=== PATIENT | male | born 1945 | race Caucasian/White ===

== ENCOUNTER 2019-02-28 13:02 | Inpatient (IN) | payer MEDICARE ==
[~2019-02-28] VITALS: Ht 177.8 cm; Wt 84.4 kg
[2019-02-28] MEDS ORDERED: FOLI0.8T PO (13:07)
[2019-02-28] MEDS ORDERED: LEVE500T9 PO (13:07)
--- NOTE | 2019-02-28 13:10 | NUR ---
danilo MAHAN frm assisted living for generalized weakness x 2 days. PATIENT A/OX1, BREATHING EVEN AND UNLABORED, NO SOB NOTED. CHANGED INTO GOWN, ATTACHED TO THE HOTEL DINING ROOM CASHIER.
[2019-02-28 13:21] LABS: BASOPHILS # (AUTO) 0.1 /CMM (0.0-0.2); BASOPHILS % (AUTO) 1.5 % (0.0-2.0); EOSINOPHILS % (AUTO) 4.3 % (0.0-6.0); HEMATOCRIT 45 % (39-51); LYMPHOCYTES # (AUTO) 1.9 /CMM (0.8-4.8); LYMPHOCYTES % (AUTO) 25.8 % (20.0-44.0); MEAN CORPUSCULAR HGB CONC 33 g/dl (31.0-36.0); MEAN CORPUSCULAR VOLUME 91 fL (80-96); MONOCYTES # (AUTO) 0.6 /CMM (0.1-1.30); MONOCYTES % (AUTO) 7.6 % (2.0-12.0); NEUTROPHILS # (AUTO) 4.5 /CMM (1.8-8.9); NEUTROPHILS % (AUTO) 60.8 % (43.0-81.0); PLATELET COUNT (AUTO) 156 /CMM (150-450); RED BLOOD CELL COUNT(AUTO) 4.95 MIL/uL (4.5-6.0); WHITE BLOOD COUNT (AUTO) 7.4 K/uL (4.3-11.0)
[2019-02-28 13:30] LABS: POTASSIUM 3.8 mmol/L (3.5-5.1); SODIUM SERUM 142 mmol/L (136-145)
[2019-02-28 13:31] LABS: CALCIUM, SERUM 9.2 mg/dL (8.5-10.1); CARBON DIOXIDE 31 mmol/L (21-32); CHLORIDE 105 mmol/L (98-107); CREATININE 1.1 mg/dL (0.6-1.3); GLUCOSE 127 mg/dL (74-106); UREA NITROGEN, BLOOD 20 mg/dL (7-18)
[2019-02-28 13:34] LABS: APPEARANCE,URINE Clear (CLEAR); BILIRUBIN,URINE SMALL (NEGATIVE); BLOOD, URINE Trace-intact Ery/uL (NEGATIVE); COLOR,URINE Amber (YELLOW); KETONES,URINE Negative (NEGATIVE); LEUKOCYTE ESTERASE ,URINE Negative (NEGATIVE); NITRITE, URINE Negative (NEGATIVE); PH,URINE 5.5 (5.0-8.0); PROTEIN,URINE 30 mg/dl (NEGATIVE); UGLUCOSE Negative (NEGATIVE); UROBILINOGEN,URINE 0.2 EU/dL (0.2)
--- NOTE | 2019-02-28 13:35 | NUR ---
dr york paged. awaiting call back.
[2019-02-28 13:38] LABS: BACTERIA,URINE Few /HPF (None Seen); SQUAMOUS EPITHELIAL CELL,UR Rare /HPF (None Seen); WBC,URINE 0-2 /HPF (0-3)
[2019-02-28 13:41] LABS: ALKALINE PHOSPHATASE 70 U/L (46-116); ASPARTATE AMINOTRANSFERASE 46 U/L (15-37); BILIRUBIN,DIRECT 0.2 mg/dL (0.0-0.2); BILIRUBIN,TOTAL 0.6 mg/dL (0.2-1.0)
[2019-02-28 13:42] LABS: ALANINE AMINOTRANSFERASE 78 U/L (12-78); ALBUMIN 3.5 g/dL (3.4-5.0); TOTAL PROTEIN, SERUM 7.7 g/dL (6.4-8.2)
--- NOTE | 2019-02-28 14:04 | NUR ---
PAGED DR. ANDERSEN. WAITING FOR CALL BACK.
--- NOTE | 2019-02-28 15:37 | NUR ---
report given to TRACI CURRAN.
--- NOTE | 2019-02-28 15:38 | NUR ---
BED ASSIGN 326-7
--- NOTE | 2019-02-28 16:33 | NUR ---
TRANSFERRED TO ROOM 326-1 VIA ACLS PROTOCOL. NO DSITRESS NOTED. ENDORSED TO TRACI CURRAN.
--- NOTE | 2019-02-28 16:35 | NUR ---
RN NOTES Received patient from ER, no sob noted, patient shows no s/s of pain at this time. Patient on room air and is a/o x1. R AC 18 remains intact. Bed at the lowest setting, call light within reach, side rails up x2.
--- NOTE | 2019-02-28 18:23 | NUR ---
RN CLOSING NOTES Patient remains on room air, no sob noted, patient shows no s/s of pain at this time. Patient remains a/o x1 and with R ac 18 S/L. Bed at the lowest setting, florian llight within reach, side rails up x2. Photos were taken and is in the chart. Will give report to NOC rn for [facility] bedside.
--- NOTE | 2019-02-28 19:20 | NUR ---
CREATIVE LEAD NOTES RECEIVED ON BED,CONFUSED,TOOK OFF HIS TELE MONITOR BOX.IVF NS AT 75ML/HR RATE IN PROGRESS ON RIGHT AC.NOTED REDNESS EXCORIATION ON RIGHT LOWER ARM.FALL PRECAUTION OBSERVED,BED ALARM TRIGGERED,CALL LIGHT I REACH,NEEDS ANTICIPATED.
[2019-02-28] MEDS: IV NS 0.9% 1,000 ML BAG IV PRN (19:28)
[2019-02-28] MEDS ORDERED: ONDANSETRON HCL/PF 4 MG/2 ML VIAL IV PRN (19:30)
[2019-02-28] MEDS ORDERED: ACETAMINOPHEN 325 MG TABLET PO PRN (19:30)
[2019-02-28 20:00] VITALS: BP 118/69
[2019-02-28] MEDS: LEVETIRACETAM (250 MG) 250 MG TABLET PO SCH (20:57)
--- NOTE | 2019-02-28 21:00 | NUR ---
WORM FARMER NOTES DUE PO MEDS GIVEN SCHEDULED,TAKEN WELL,NEGATIVE FOR ASPIRATION.SNACKS PROVIDED.
[2019-03-01] VITALS (7 sets, daily range): BP systolic 113–141; BP diastolic 66–79
--- NOTE | 2019-03-01 02:00 | NUR ---
AGRICULTURE SCIENTIST NOTES SALINE LOCK ACCIDENTALLY PULLED OUT.NEW SALINE LOCK PLACE ON LEFT THUMB #22,SAME IVF INFUSING.
--- NOTE | 2019-03-01 06:21 | NUR ---
PAINTING SUPERVISOR NOTES CALM AND QUIET ON BED.SR-61 ON TELE MONITOR.REFUSED TO WEAR HOSPITAL GOWN.NO SEIZURE ACTIVITY NOTED.BREAKFAST WILL BE HOLD TILL SEEN BY SERVICE DESK TECHNICIAN.IN NO ACUTE DISTRESS.WILL ENDORSE TO DAY NURSE FOR RIKA.
--- NOTE | 2019-03-01 07:26 | NUR ---
RN OPENING NOTES Patient received on room air, no sob noted,remains a/o x1. L thumb 22 NS @ 75 ml per hour. Bed at the lowest setting, call light within reach, side rails up x2.
[2019-03-01] MEDS: LEVETIRACETAM (250 MG) 250 MG TABLET PO SCH ×2 (08:17→20:53)
[2019-03-01] MEDS: FOLIC ACID 1 MG TABLET PO SCH (08:17)
[2019-03-01] MEDS: PANTOPRAZOLE 40 MG TABLET.DR PO SCH (08:17)
[2019-03-01] MEDS: ENOXAPARIN SODIUM 40 MG/0.4 ML DISP.SYRIN SQ SCH (08:18)
--- NOTE | 2019-03-01 19:03 | NUR ---
RN CLOSING NOTES Patient remains on room air, no sob noted, a/o x1. Cardiac diet, NS @ 75 ml per hour. Patient removed IV line at this time. Continue IVF cont hospitalization. Bed at the lowest setting, call light within reach, side rails up x2. Will give report to NOC RN for [facility] bedside.
--- NOTE | 2019-03-01 19:10 | NUR ---
TELE/RN OPENING NOTES: RECEIVED PATIENT ON BED,CONFUSED, A/OX1. TOOK OFF HIS TELE MONITOR BOX.IVF NS AT 75ML/HR RATE IN PROGRESS ON LEFT THUMB. ON TELE MONITORING WITH READING OF SR WITH HR OF 60'S AND OCCASIONAL PVCS. NOTED REDNESS EXCORIATION ON RIGHT LOWER ARM. FALL PRECAUTION OBSERVED, SAFETY PRECAUTIONS ARE IN PLACE. BED ALARM ON, BE DIN LOW, LOCKED POSITION WITH SR UP X2. CALL LIGHT IN REACH, WILL CONTINUE MONITORING PT ACCORDINGLY. Addendum: 03/01/19 at 2345 by JOSEPH FLORES RN NO IV LINE PRESENT. WILL INSERT AN IV LINE
[2019-03-02] VITALS (8 sets, daily range): BP systolic 93–144; BP diastolic 54–79
--- NOTE | 2019-03-02 | NUR ---
MS/DISTILLERY WORKER NOTES: STARTED NEW IV LINE ACCESS ON THE LEFT HAND #22G CLEAN, INTACT, PATENT AND FLUSHING WELL.
[2019-03-02] MEDS: IV NS 0.9% 1,000 ML BAG IV PRN (00:11)
--- NOTE | 2019-03-02 00:18 | NUR ---
TELE/MS RN NOTES: IV 0.9 NS 1000 ML RUNNING AT 75MLS/HR. IV LINE INTACT AND PATENT.
--- NOTE | 2019-03-02 06:24 | NUR ---
TELE/RN CLOSING NOTES: Patient remains on room air, no sob noted, a/o x1. No significant changes in condition. On cardiac diet. IV access on the left hand #22g, patent and intact, NS running @ 75 ml per hour. Tele reading of SR with HR on the 70s. All medications given as ordered. Tolerated well. Safety measures kept in place. Bed at the lowest setting and locked, call light within reach, side rails up x2. All nursing needs met and provided. Will give report to day shift RN for [facility]IKA bedside.
[2019-03-02 07:12] LABS: BASOPHILS % (AUTO) 0.7 % (0.0-2.0); EOSINOPHILS % (AUTO) 5.2 % (0.0-6.0); HEMATOCRIT 41 % (39-51); HEMOGLOBIN 13.7 g/dL (13.5-17.5); LYMPHOCYTES # (AUTO) 1.5 /CMM (0.8-4.8); LYMPHOCYTES % (AUTO) 31.5 % (20.0-44.0); MEAN CORPUSCULAR HGB CONC 34 g/dl (31.0-36.0); MEAN CORPUSCULAR VOLUME 90 fL (80-96); MONOCYTES # (AUTO) 0.6 /CMM (0.1-1.30); MONOCYTES % (AUTO) 11.9 % (2.0-12.0); NEUTROPHILS # (AUTO) 2.5 /CMM (1.8-8.9); NEUTROPHILS % (AUTO) 50.7 % (43.0-81.0); PLATELET COUNT (AUTO) 144 /CMM (150-450); RED BLOOD CELL COUNT(AUTO) 4.54 MIL/uL (4.5-6.0); WHITE BLOOD COUNT (AUTO) 4.9 K/uL (4.3-11.0)
[2019-03-02 07:25] LABS: ALBUMIN 2.7 g/dL (3.4-5.0); BILIRUBIN,TOTAL 0.6 mg/dL (0.2-1.0); CALCIUM, SERUM 8.1 mg/dL (8.5-10.1); CREATININE 0.8 mg/dL (0.6-1.3); PHOSPHORUS 2.1 mg/dL (2.5-4.9); POTASSIUM 3.7 mmol/L (3.5-5.1); TOTAL PROTEIN, SERUM 6.2 g/dL (6.4-8.2)
--- NOTE | 2019-03-02 08:00 | NUR ---
RN NOTES RECEIVED PATIENT IN THE BED RESTING A/A/O X1 UNABLE TO EXPRESS SELF , BUT UNDERSTAND CONCEPTS. NO ACUTE RESPIRATORY DISTRESS, V/S STABLE, ADMINISTERED SCHEDULED MEDICATION WITH CRUSHED MIXED WITH APPLE SAUCE. IV ACCESS ON LEFT HAD INTACT. PATIENT REFUSED PAIN. ASSIST PATIENT TURN AND REPOSTION IN THE BED Q2 HR. CALL LIGHT WITHIN TO REACH. PATIENT INCONTINENT OF URINE, USING DIAPER. SAFETY PRECAUTION MAINTAINED ALL THE TIME.
[2019-03-02] MEDS: FOLIC ACID 1 MG TABLET PO SCH (09:43)
[2019-03-02] MEDS: PANTOPRAZOLE 40 MG TABLET.DR PO SCH (09:43)
[2019-03-02] MEDS: LEVETIRACETAM (250 MG) 250 MG TABLET PO SCH ×2 (09:43→21:08)
[2019-03-02] MEDS: ENOXAPARIN SODIUM 40 MG/0.4 ML DISP.SYRIN SQ SCH (09:45)
[2019-03-02] MEDS ORDERED: POTASSIUM CHLORIDE 20 MEQ TAB.PRT.SR PO ONE (11:30)
[2019-03-02] MEDS ORDERED: NEUTRA PHOS 1 POWD.PACKET PO ONE (11:30)
--- NOTE | 2019-03-02 12:41 | NUR ---
MS RN NOTES BS-146 MG/DL ADMINISTERED 2 UNITS OF INSULIN, INFUSING ZOSYN 25 ML/HR ON LEFT FA INTACT, PATIENT REFUSED PAIN, , EATING LUNCH. F/C DRAINING WITH BLOODY OUTCOME. SEEN PATIENT BY VENEER GRADER Dr ZAVALA, AND HOSPITALIST SARA BOATENG. ASSIST PATIENT TURN AND REPOSTION Q 2 HR. CALL LIGHT WITHIN TO REACH. SAFETY PRECAUTION MAINTAINED ALL TH TIME. Addendum: 03/02/19 at 1250 by JIM AMAYA RN ABOVE NOTES IS NOT CORRECT ENQUIRE.
--- NOTE | 2019-03-02 13:04 | NUR ---
RN NOTES PER HOSPITALIST D/C TELE TO MED SURGE.
--- NOTE | 2019-03-02 13:40 | NUR ---
rn notes patient pickling drum operator for ct of abdomen at this time.
--- NOTE | 2019-03-02 13:50 | NUR ---
RN NOTES PATIENT BACK FROM ST, STABLE, ASSIST PATIENT TO THE BATHROOM WITH TWO PERSON DEVELOPER AUTOMATIC, PATIENT FALL RISK. SAFETY PRECAUTION MAINTAINED ALL THE TIME. PATIENT REFUSED PAIN. NEEDS ATTENDED AND ANTICIPATED. CONTINUED MONITORING.
--- NOTE | 2019-03-02 19:45 | NUR ---
MS RN OPENING NOTES Patient currently resting in bed a/o x1. Stable on room air breathing even and unlabored. No acute distress notes, no complaints of pain and discomfort. Patient on diaper and has bed side commode. IV located on right FA #20 patent and intact. Safety precautions in place with bed in lowest position, side rails up, breaks on, and call light within reach. Will continue to monitor.
--- NOTE | 2019-03-03 06:59 | NUR ---
MS RN CLOSING NOTES Patient is currently in bed resting a/o x1. Stable on RA breathing even and unlabored. No complaints of pain or discomfort, and no signs of acute distress. IV located on R FA #20 patent and intact. Safety precautions in place with bed in lowest position, breaks on, call light within reach, and side rails up x2. Will endorse to oncoming shift about oleksandr.
--- NOTE | 2019-03-03 07:29 | NUR ---
MS RN OPENING NOTES: PATIENT RECEIVED IN BED AWAKE LAYING COMFORTABLY IN NO APPARENT DISTRESS. BREATHING ON ROOM AIR WITH NO SOB PRESENT AT THE MOMENT. PATIENT A/O X2. PATIENT IS VERBALLY RESPONSIVE. DENIES PAIN OR ANY DISCOMFORT AT THIS TIME. IV ACCESS ON R FA GAUGE # 20. IT IS PATENT AND FLUSHING WELL. ALL SAFETY PRECAUTIONS IN PLACE; BED IN LOW POSITION AND LOCKED, RAILS UP X 2, CALL LIGHT WITHIN REACH. REMINDED THE PATIENT TO CALL FOR ASSISTANCE BEFORE GETTING OUT OUT OF BED. WILL CONTINUE TO MONITOR.
[2019-03-03 08:00] VITALS: BP 127/66
[2019-03-03] MEDS: ENOXAPARIN SODIUM 40 MG/0.4 ML DISP.SYRIN SQ SCH (08:21)
[2019-03-03] MEDS: LEVETIRACETAM (250 MG) 250 MG TABLET PO SCH ×2 (08:22→20:31)
[2019-03-03] MEDS: FOLIC ACID 1 MG TABLET PO SCH (08:22)
[2019-03-03] MEDS: PANTOPRAZOLE 40 MG TABLET.DR PO SCH (08:22)
[2019-03-03 08:50] VITALS: BP_SYST 110; BP_SYST 116; BP_SYST 118; BP_DIAS 59; BP_DIAS 61; BP_DIAS 67
[2019-03-03] MEDS: IV NS 0.9% 1,000 ML BAG IV PRN (08:52)
--- NOTE | 2019-03-03 15:33 | NUR ---
RN NOTES CALLED RADIOLOGY REGARDING PT CT OF CHEST W/O CONTRAST. INFORMED THAT PT IS MORE ALERT, CALMED AND COOPERATIVE TODAY. NURSE STAFF INDUSTRIAL SAID THAT THEY WILL COME AND TRY TO DO IT TODAY.
[2019-03-03 16:00] VITALS: BP 114/59
--- NOTE | 2019-03-03 18:05 | NUR ---
RN NOTES PT PULLED OUT HIS IV ACCESS ON RFA G#20, NO BLEEDING NOTED. NEW IV ACCESS INSERTED TO LFA G#22. WILL CONTINUE TO MONITOR.
--- NOTE | 2019-03-03 18:41 | NUR ---
MS RN CLOSING NOTES: PATIENT IN BED AWAKE AND RESTING AT SEMI-JIMENEZ'S POSITION. A/O X 1-2. FORGETFUL AND RESPONDS BY SAYING YES OR NO. ON ROOM AIR, TOLERATING WELL WITH NO SIGNS OF DISTRESS NOTED THROUGHOUT THE DAY. IV ACCESS ON LFA #22G INTACT, PATENT AND FLUSHING WELL. ALL NEEDS AND CARE ATTENDED WELL. SEIZURE AND SAFETY PRECAUTIONS MAINTAINED: BED IN LOWEST LOCKED POSITION WITH SIDE RAILS UP X 2, RAILS ARE PADDED. CALL LIGHT WITHIN REACH. INSTRUCTED PT ON SAFETY MEASURES AND ENCOURAGED THROUGHOUT THE DAY TO USE THE CALL LIGHT BUTTON FOR ASSISTANCE OR WHEN OOB. WILL ENDORSE TO MONOTYPE MACHINIST RN FOR RIKA.
--- NOTE | 2019-03-03 19:31 | NUR ---
MS RN OPENING NOTES Patient is currently resting in bed A/O x1, able to nod yes and no. Stable on RA with breathing even and unlabored. No signs of acute distress and no complaints of pain or discomfort at the moment. IV access located on L FA #22. Seizure precautions are in place and safety precautions with bed in lowest position, locked side rials up x2 padded. Will continue to monitor.
--- NOTE | 2019-03-03 19:37 | NUR ---
MS RN NOTES Called radiology to follow up with regarding patient CT of chest w/o contrast. Was told they would be coming soon to pick him up for test,
--- NOTE | 2019-03-03 19:47 | NUR ---
MS RN NOTES Picked up by radiology via wheelchair.
[2019-03-03 20:00] VITALS: BP 112/59
[2019-03-04 06:08] VITALS: BP_SYST 108; BP_SYST 121; BP_DIAS 60; BP_DIAS 66; BP_DIAS 68
--- NOTE | 2019-03-04 06:23 | NUR ---
MS RN CLOSING NOTES Patient is currently resting in bed A/O x1, able to response with yes and no. Currently stable on RA with breathing even and unlabored. No complaints of pain or discomfort. No signs of acute distress. IV access located on L FA #22. Seizure precautions are in place with side rails up x2 padded. Safety precautions are in place with bed in lowest position, side rails up x2, and call light within reach. Patient was kept clean and dry. Al needs were attended to. Will endorse to oncoming shift about RIKA.
--- NOTE | 2019-03-04 07:23 | NUR ---
MS RN OPENING NOTES RECEIVED PATIENT IN BED ASLEEP. PATIENT BREATHING EVENLY ON RA WITH NO SIGNS OF PAIN OR DISTRESS AT THIS MOMENT. IV LINE IN LEFT FA GAUGE # 22. SEIZURE PRECAUTION IN PLACE, RAILS BEDDED. SAFETY MEASURES IN PLACE: BED IN LOW POSITION, LOCKED, RAILS UP X 3, CALL LIGHT WITHIN REACH. WILL CONTINUE TO MONITOR PATIENT.
[2019-03-04 08:00] VITALS: BP_SYST 113; BP_SYST 114; BP_SYST 116; BP_DIAS 66; BP_DIAS 69; BP_DIAS 71
[2019-03-04] MEDS: ENOXAPARIN SODIUM 40 MG/0.4 ML DISP.SYRIN SQ SCH (08:08)
[2019-03-04] MEDS: PANTOPRAZOLE 40 MG TABLET.DR PO SCH (08:22)
[2019-03-04] MEDS: LEVETIRACETAM (250 MG) 250 MG TABLET PO SCH (08:22)
[2019-03-04] MEDS: FOLIC ACID 1 MG TABLET PO SCH (08:23)
--- NOTE | 2019-03-04 13:02 | NUR ---
RN NOTES CALLED [facility] TO GIVE DISCHARGE REPORT. STAFF KORINA TOLD ME THEY DO NOT HAVE AN AVAILABLE BED AT THIS MOMENT AND THAT THEY ARE DISCHARGING SOME PATIENTS. KORINA SAID SHE WILL FOLLOW UP WITH US IN ONE HOUR REGARDING NEW AVAILABLE LISETTE.
--- NOTE | 2019-03-04 13:24 | NUR ---
RN NOTES PT FOR DISCHARGE TO [facility] TODAY. CALLED AND REPORT GIVEN TO NURSE HUI. PICK-UP TIME PER [facility] IS 1900.
--- NOTE | 2019-03-04 13:52 | NUR ---
RN NOTES CALLED [facility] TO GIVE DISCHARGE REPORT. SPOKE TO BINA HERNANDEZ. FULL REPORT GIVEN. ALSO CALLED PATIENT'S SISTER, ADELA. LEFT A VOICEMAIL REGARDING HER BROTHER TRANSFER BACK TO FACILITY THIS AFTERNOON. Addendum: 03/04/19 at 1527 by KYRA HALL RN CORRECTION: WRONG PATIENT
[2019-03-04 16:00] VITALS: BP 103/64
--- NOTE | 2019-03-04 18:47 | NUR ---
MS RN CLOSING NOTES: PATIENT IN BED AWAKE AND RESTING AT SEMI-JIMENEZ'S POSITION. A/O X 1-2. FORGETFUL AND RESPONDS BY SAYING YES OR NO. INSTRUCTED PT ON SAFETY MEASURES AND ENCOURAGED THROUGHOUT THE DAY TO USE THE CALL LIGHT BUTTON FOR ASSISTANCE OR WHEN OOB. ON ROOM AIR, TOLERATING WELL WITH NO SIGNS OF DISTRESS NOTED THROUGHOUT THE DAY. IV ACCESS ON LFA #22G INTACT, PATENT AND FLUSHING WELL. ALL NEEDS AND CARE ATTENDED WELL. SEIZURE AND SAFETY PRECAUTIONS MAINTAINED: BED IN LOWEST LOCKED POSITION WITH SIDE RAILS UP X 2, RAILS ARE PADDED. CALL LIGHT WITHIN REACH. PT FOR DISCHARGE TONIGHT TO [facility]. WILL ENDORSE TO CLINICIAN ONCOLOGY RN.
--- NOTE | 2019-03-04 19:50 | NUR ---
MS RN NOTE: PATIENT RESTING IN BED, NO ACUTE DISTRESS NOTED. BREATHING EVEN AND UNLABORED, NO SOB NOTED. IV TO LFA IN PLACE. PATIENT TO BE DISCHARGE TONIGHT TO [facility]. DISCHARGE PAPERWORK COMPLETED AND SIGNED DURING DAYSHIFT. BED LOCKED AND IN LOWEST POSITION, CALL LIGHT IN REACH. WILL CONTINUE TO MONITOR.
[2019-03-04 20:32] VITALS: BP 117/68
--- NOTE | 2019-03-04 21:00 | NUR ---
MS RN NOTE: PATIENT TO BE DISCHARGE, REPORT AND DISCHARGE PAPERWORK GIVEN TO EMT. REPORT GIVEN TO FACILITY EARLIER WITH DAYSHIFT NURSE. IV TO LFA REMOVED, COVERED WITH GAUZE, PRESSURE APPLIED AND SECURED WITH TAPE. ID BAND REMOVED, BELONGINGS WITH EMT. VITAL SIGNS STABLE. PATIENT DISCHARGE OFF FLOOR IN STABLE CONDITION.
== END 2019-03-04 20:55 | DRG 640 ==
LOC: ER 13:07 → TELE 15:52 → MED 03-02 09:13
PROVIDERS: ADMIT Legal Medicine; ATTEND Legal Medicine
DX: E86.0 Dehydration (principal); G93.41 Metabolic encephalopathy; G40.909 Epilepsy, unspecified, not intractable, without status epilepticus; I95.9 Hypotension, unspecified; F03.90 Unspecified dementia, unspecified severity, without behavioral disturbance, psychotic disturbance, mood disturbance, and anxiety; F09 Unspecified mental disorder due to known physiological condition; I10 Essential (primary) hypertension; J44.9 Chronic obstructive pulmonary disease, unspecified; N40.0 Benign prostatic hyperplasia without lower urinary tract symptoms; M19.90 Unspecified osteoarthritis, unspecified site; Z87.820 Personal history of traumatic brain injury; R53.81 Other malaise
CPT/HCPCS: 36415; 71045-TC; 71250-TC; 80048-TC; 80053-TC; 80076-TC; 81000-TC; 83605-TC; 83735-TC; 84100-TC; 84484-TC; 85025-TC; 85730-TC; 87040-TC; 87081-TC; 87086-TC; 93307-TC; 97110-TC; 97116-TC; 97530-TC; G0378; J1650; J7030